=== PATIENT | female | born 1995 ===

== ENCOUNTER 2017-06-20 08:48 | Inpatient (IN) | payer OTHER ==
[2017-06-20 08:45] VITALS: BMI 32.1
[~2017-06-20 08:48] MED LIST: ceFAZolin IV 2 gm in Dextrose 2 GM/50 ML BAG IVPB ONE
[2017-06-20] MEDS: Lactated Ringer's 1,000 ML IV SCH ×3 (09:15→18:09)
[2017-06-20] MEDS ORDERED: Oxytocin 30 UNITS in Sodium Chloride 0.9% 500 ML IV ONE (10:03)
[2017-06-20 10:17] LABS: BASO % 0.4 % (0.0-2.0); EOS % 0.6 % (0.0-4.0); HEMOGLOBIN 10.6 g/dL (12.0-16.0); LYMPH # 2.3 K/uL (1.0-4.3); LYMPH % 25.8 % (20.0-40.0); MEAN CELL VOLUME 86.6 fl (81.0-99.0); MEAN CORPUSCULAR HEMOGLOBIN 29.3 pg (27.0-31.0); MEAN CORPUSCULAR HGB CONC 33.8 g/dL (33.0-37.0); MEAN PLATELET VOLUME 9.6 fl (7.2-11.7); MONO # 0.4 K/uL (0.0-0.8); MONO % 4.4 % (0.0-10.0); NEUT # 6.2 K/uL (1.8-7.0); NEUT % 68.8 % (50.0-75.0); NRBC % 0.1 % (0.0-0.0); RBC 3.63 Mil/uL (3.80-5.20); RED CELL DISTRIBUTION WIDTH 14.2 % (11.5-14.5)
[2017-06-20] MEDS ORDERED: Lactated Ringer's 1,000 ML IV SCH ×2 (10:30→21:02)
[2017-06-20] MEDS ORDERED: Morphine 1 mg/ml preservative-free Inj(Duramorph) ONE (16:52)
[2017-06-20] MEDS ORDERED: ePHEDrine 50 mg/ml Inj ONE (17:17)
[2017-06-20] MEDS ORDERED: Oxycodone/Acetaminophen 5/325 mg Tab PO PRN ×2 (18:31→21:02)
[2017-06-20] MEDS ORDERED: DiphenhydrAMINE 50 mg/ml Inj IVP PRN ×2 (19:00→21:02)
[2017-06-21 07:23] LABS: BASO % 0.2 % (0.0-2.0); EOS % 0.3 % (0.0-4.0); HEMOGLOBIN 8.8 g/dL (12.0-16.0); LYMPH # 1.5 K/uL (1.0-4.3); LYMPH % 13.9 % (20.0-40.0); MEAN CELL VOLUME 85.6 fl (81.0-99.0); MEAN CORPUSCULAR HEMOGLOBIN 29.2 pg (27.0-31.0); MEAN CORPUSCULAR HGB CONC 34.2 g/dL (33.0-37.0); MEAN PLATELET VOLUME 9.6 fl (7.2-11.7); MONO # 0.6 K/uL (0.0-0.8); MONO % 5.5 % (0.0-10.0); NEUT # 8.6 K/uL (1.8-7.0); NEUT % 80.1 % (50.0-75.0); RED CELL DISTRIBUTION WIDTH 13.8 % (11.5-14.5); WHITE BLOOD COUNT 10.7 K/uL (4.8-10.8)
--- NOTE | 2017-06-21 11:53 | OBPPN ---
Datetime: 06/21/2017 07:00 PP Pain Prov: Within normal limits PP Nausea Prov: Denies PP Flatus Prov: No PP BM Prov: No PP Breasts Prov: Not Done PP Heart Prov: Normal PP Lungs Prov: Normal PP Abdomen/Uterus Prov: Normal PP Lochia Prov: Normal PP Vulva/Perineum Prov: Not Done PP CVA Tenderness Prov: Normal PP Extremities Prov: Normal PP C/S Incision Prov: Normal PP Progress Prov: Normal PP Impression Prov: Normal progression PP Plan Prov: Continue present management PP Progress Note Prov: POD 1 S: 22 yo s/p on 06/20/17. Pt. is seen and examined at bedside this AM. No overn ight events. Pt reports mild abdominal pain, but well controlled with pain meds. D/c pinzon, dressing to be removed at 15:00. advised to advance diet as tolerated. Breast feeding without difficulty. Loch ia is similar to menses volume. No bowel movement, or passing gas per rectum. Denies fever/chills, di arrhea, chest pain, dyspnea, and dizziness. Shares of one episode of vomiting clear water. O: VS: stable GEN: NAD Cardio: S1S2, no M/G/R Lungs: clear breath sounds b/l Abdomen: BS+, tenderness to palpation. Incision scar to be examined at 15:00 with dressing removal . Uterus is firm and at the level of the umbilicus. EXT: No edema, calves nontender NEURO/PSYCH: AAOx3, no grossly focal deficits, preserved affect and mood. Assessment/Plan: 22 yo s/p on 06/20/17. Pt remains afebrile, tolerating pain wit h medication, doing well on POD#1. OOB with caution. continue monitoring for vomiting, fever. SCDs for DVT prophylaxis, encouraged ambulating Percocet 5/325mg, and Motrin 600mg for pain. Colace 100mg PO BID/Senokot 17.2 mg for constipation Encourage and ambulating f/u CBC post op, pending Anticipated d/c to home, 06/23/17. --- Timoteo Alonso MD PGY-1 The patient was seen with the resident and I agree with the notes IP PP Procedures: None Vital Signs Provider PP: Reviewed; Within Normal Limits
--- NOTE | 2017-06-23 12:01 | OBPPN ---
Datetime: 06/23/2017 06:00 PP Pain Prov: Within normal limits PP Nausea Prov: Denies PP Flatus Prov: Yes PP BM Prov: No PP Breasts Prov: Not Done PP Heart Prov: Normal PP Lungs Prov: Normal PP Abdomen/Uterus Prov: Normal PP Lochia Prov: Normal PP Vulva/Perineum Prov: Not Done PP CVA Tenderness Prov: Normal PP Extremities Prov: Normal PP C/S Incision Prov: Normal PP Progress Prov: Normal PP Impression Prov: Normal progression PP Plan Prov: Discharge PP Progress Note Prov: POD 3 S: 22 yo s/p on 06/20/17. Pt. is seen and examined at bedside this AM. No overn ight events. Pt reports mild abdominal pain, but well controlled with pain meds. D/c pinzon, dressing removed, incision site healing well, no exudate seen, dry and intact. Advised to advance diet as tole rated. Breast feeding without difficulty. Lochia is similar to menses volume. No bowel movement, but passing gas per rectum. Denies fever/chills, diarrhea, chest pain, dyspnea, and dizziness. O: VS: stable GEN: NAD Cardio: S1S2, no M/G/R Lungs: clear breath sounds b/l Abdomen: BS+, tenderness to palpation. Incision scar noted, well healing with no exudate seen, dry and intact. Uterus is firm and at the level of the umbilicus. EXT: No edema, calves nontender NEURO/PSYCH: AAOx3, no grossly focal deficits, preserved affect and mood. Assessment/Plan: 22 yo s/p on 06/20/17. Pt remains afebrile, tolerating pain wit h medication, doing well on POD#3. OOB with caution. SCDs for DVT prophylaxis, encouraged ambulating Percocet 5/325mg, and Motrin 600mg for pain. Colace 100mg PO BID/Senokot 17.2 mg for constipation Encourage and ambulating f/u CBC post op, 8.8/25.7 prescribed FeSO4 Anticipated d/c to home, 06/23/17. --- Timoteo Alonso MD PGY-1 OB Hospitalist on-call. On rounds this morning, I saw and examined this pt. Agree with PGY 1 deepak SABILLON PP Procedures: None Vital Signs Provider PP: Reviewed; Within Normal Limits
--- NOTE | 2017-06-23 12:01 | OBDCSUM ---
Datetime: 06/23/2017 06:00 Discharged to, Provider: Home Follow up at, Provider: [facility] Disch Instr Activity: Normal activity; May Shower Disch Instr Diet: Regular Discharge Instructions, Provider: Routine instructions given Discharge Diagnosis, Provider: Term Delivered Discharge Time: 06/23/2017 12:00 Follow up in weeks, Provider: 4-6 days wound check; 4-6 wks pp Disch Referrals: None Contraception discussed, Prov: Yes Disch Activity Restrictions: No exercising; No lifting; No driving; No sexual activity; Nothing in v agina - [place], tampons, douche Discharge Comment, Provider: Discharge Summary DOA: 06/20/2017 EGA: 39.1 Diagnosis: Term Risk factors: none Summary of : 22 yo F L_D summary DOL: 06/20/2017 at 15:47 NB: F : 9/9 Weight: 3990g PP summary No serious complications during Post-Op. Lochia= menses, mild pain, controlled with medications Rubella immune, Tdap done Blood type: O+ CBC pp: 8.8/25.7 prescribed FeSO4 Discharge Date: 06/23/2017 Time 10:00 AM Discharge Instructions: -encourage -percocet/Ibuprofen for pain PRN -Senokot 17.2 mg qHS for constipation -Ambulate as tolerated -f/u NB visit 3-7 days w/ running specialist and PP visit 4-6 weeks with OB; Dressing removal/wound care 3-7 days; --- Timoteo Alonso MD PGY-1 OB Hospitalist on-call. On rounds this morning, I saw and examined this pt. Agree with PGY 1 deepak FINN Contraception after Delivery: IUD
[2017-06-23 16:53] VITALS: BP 108/70; PULSE 84; RESP 20; TEMP 99.8; O2SAT 100
== END 2017-06-23 11:27 | disposition home or self-care (01) | DRG 371 ==
LOC: H.L&D 08:48 → H.OB/GYN 21:15
PROVIDERS: ADMIT Obstetrics & Gynecology; ATTEND Obstetrics & Gynecology
PROC: 10D00Z1 Extraction of Products of Conception, Low, Open Approach (ICD-10-PCS; principal; 2017-06-20)
PROC: 4A1HXCZ Monitoring of Products of Conception, Cardiac Rate, External Approach (ICD-10-PCS; 2017-06-20)
DX: O34.211 Maternal care for low transverse scar from previous cesarean delivery (principal); N85.8 Other specified noninflammatory disorders of uterus; Z37.0 Single live birth; Z3A.37 37 weeks gestation of pregnancy

== ENCOUNTER 2018-01-08 12:53 | Emergency (ER) | payer OTHER ==
[2018-01-08 12:53] VITALS: BMI 32.1
[2018-01-08 13:02] VITALS: BP 106/73; RESP 17; O2SAT 98
--- NOTE | 2018-01-08 14:25 | ED PDOC ---
HPI: CCC, URI, Sore Throat Time Seen by Provider: 01/08/18 13:13 Chief Complaint (Nursing): ENT Problem Chief Complaint (Provider): Sore throat, 4 days History Per: Patient History/Exam Limitations: no limitations Have you had recent travel within the past 21 days to any of the following countries: [place], [place], [place] or [place]?: No Onset/Duration Of Symptoms: Days Current Symptoms Are (Timing): Still Present Additional Complaint(s): 22 yo female with no medical problems presents with sore throat for 4 days and fever 103.0 this morning. Pt states she did not take anything for pain due to the pain. Pt denies cough. Past Medical History Reviewed: Historical Data, Nursing Documentation, Vital Signs Vital Signs: Last Vital Signs Temp 101.9 F H 01/08/18 13:34 Pulse 117 H 01/08/18 13:01 Resp 17 01/08/18 13:01 BP 106/73 01/08/18 13:01 Pulse Ox 98 01/08/18 14:25 - Medical History PMH: No Chronic Diseases - Surgical History Surgical History: No Surg Hx - Family History Family History: States: Unknown Family Hx - Living Arrangements Living Arrangements: With Family - Social History Current smoker - smoking cessation education provided: No - Home Medications Home Medications: Ambulatory Orders Medication Instructions Recorded Vit No.129/Iron/Folic 1 each PO DAILY #30 tablet 10/25/16 [ One Daily Tablet] Amoxicillin/Clavulanate [Augmentin 1 tab PO BID #20 tab 01/08/18 875 MG-125 MG] - Allergies Allergies/Adverse Reactions: Allergies Allergy/AdvReac Type Severity Reaction Status Date / Time No Known Allergies Allergy Verified 07/05/16 09:43 Review of Systems ROS Statement: Except As Marked, All Systems Reviewed And Found Negative Constitutional: Positive for: Fever, Chills, Sweats ENT: Positive for: Throat Pain. Negative for: Ear Pain Cardiovascular: Negative for: Chest Pain Respiratory: Negative for: Cough, Shortness of Breath Physical Exam - Reviewed Nursing Documentation Reviewed: Yes Vital Signs Reviewed: Yes - Physical Exam Appears: Positive for: Well, Non-toxic, No Acute Distress Head Exam: Positive for: ATRAUMATIC, NORMAL INSPECTION, NORMOCEPHALIC Skin: Positive for: Normal Color, Warm, DRY Eye Exam: Positive for: Normal appearance ENT: Positive for: Pharynx Is, Pharyngeal Erythema, Tonsillar Exudate, Tonsillar Swelling, Other (Uvula mid-line, tonsils do not touch ). Negative for : Normal ENT Inspection Neck: Positive for: Normal Cardiovascular/Chest: Positive for: Regular Rate, Rhythm Respiratory: Positive for: Normal Breath Sounds. Negative for: Accessory Muscle Use, Respiratory Distress Back: Positive for: Normal Inspection Extremity: Positive for: Normal ROM Neurologic/Psych: Positive for: Alert - ECG O2 Sat by Pulse Oximetry: 98 Medical Decision Making Medical Decision Making: Tyleno for fever. Decadron for throat pain. Urine preg (-) Disposition - Clinical Impression Clinical Impression: Strep pharyngitis - Patient ED Disposition Is Patient to be Admitted: No Counseled Patient/Family Regarding: Diagnosis, Need For Followup, Rx Given - Disposition Disposition: Routine/Home Disposition Time: 14:26 Condition: STABLE Prescriptions: Amoxicillin/Clavulanate [Augmentin 875 MG-125 MG] 1 tab PO BID #20 tab Instructions: Strep Throat (DC) Forms: [employer] (Italian) Print Language: [place]
[2018-01-08 14:31] VITALS: TEMP 100.6
[2018-01-08 14:32] VITALS: PULSE 80
== END 2018-01-08 14:42 | disposition home or self-care (01) ==
LOC: SUPCPDRO 12:53 → H.ER 12:53
DX: J02.0 Streptococcal pharyngitis (principal)
CPT/HCPCS: 81025; 96372; 99283; J1100